=== PATIENT | female | born 1940 | race Caucasian/White ===

== ENCOUNTER 2019-08-07 16:25 | Emergency (ER) | payer MEDICARE, OTHER | END 2019-08-07 17:15 | disposition left against medical advice (07) | LOC: NAV ERS 16:25 | DX: N93.9 Abnormal uterine and vaginal bleeding, unspecified (principal); I10 Essential (primary) hypertension; K21.9 Gastro-esophageal reflux disease without esophagitis; E78.5 Hyperlipidemia, unspecified; J44.9 Chronic obstructive pulmonary disease, unspecified; Z87.891 Personal history of nicotine dependence; Z79.51 Long term (current) use of inhaled steroids; Z79.899 Other long term (current) drug therapy | CPT/HCPCS: 99284 ==

== ENCOUNTER 2020-04-24 22:33 | Emergency (ER) | payer MEDICARE ==
[~2020-04-24 22:33] MED LIST: Iopamidol 370 76% 100 ML VIAL ONE
[2020-04-24 22:58] LABS: #Basophils 0.1 thou/uL (0.0-0.2); #Eosinphils 0.1 thou/uL (0.0-0.7); #Lymphocytes 1.1 thou/uL (1.20-3.40); #Monocytes 0.4 thou/uL (0.11-0.59); #Neutrophils 2.7 thou/uL (1.40-6.50); %Basophils 1.4 % (0.0-1.0); %Eosinophils 2.7 % (0.0-10.0); %Lymphocytes 24.8 % (21.0-51.0); %Monocytes 9.3 % (0.0-10.0); %Neutrophils 61.8 % (42.0-75.0); Hemoglobin 10.7 g/dL (12.0-16.0); Mean Corpuscular HGB CONC 30.9 g/dL (32.0-36.0); Mean Corpuscular Hemoglobin 29.6 pg (27.0-31.0); Mean Platelet Volume 11.5 fL (7.4-10.4); Platelet Count 124 thou/uL (130-400); RBC Distribution Width 11.7 % (11.5-14.5); Red Blood Cell (RBC) Count 3.61 mill/uL (4.20-5.40); White Blood Cell (WBC) Count 4.4 thou/uL (4.8-10.8)
--- NOTE | 2020-04-24 23:07 | CT ---
CT HEAD WITHOUT IV CONTRAST COMPARISON: 04/10/2020 HISTORY: Dizziness. TECHNIQUE: Axial CT imaging at 5 mm intervals from vertex through skull base without contrast FINDINGS: There is decreased attenuation in the periventricular white matter which is nonspecific but likely re flective of chronic small vessel ischemic changes. Stable low density area seen in the posterior right basal ganglia compatible with a remote lacunar infarction. There is mild cerebral volume loss. The ventricular system is normal in size, shape, and position for the degree of sulcal atrophy. There is no evidence of an acute cortical infarction, hemorrhage, mass effect, or midline shift. Visualized paranasal sinuses are clear. Osseous structures appear intact. No significant interval change when compared to prior exam; however, the infarction in the region of the right caudate head and basal ganglia is much less perceptible on the current exam. IMPRESSION: 1. No acute intracranial abnormality demonstrated. 2. Chronic small vessel ischemic changes and cerebral volume loss. 3. Above findings discussed with Dr. Yoder in the emergency department on 04/24/2020 at 2302 hours.
[2020-04-24 23:08] LABS: INR-International Normal Ratio 0.9; PTT 26.1 sec (22.9-36.1); Prothrombin Time 12.2 sec (12.0-14.7)
[2020-04-24 23:16] LABS: ALT (SGPT) 17 U/L (8-55); AST (SGOT) 13 U/L (5-34); Albumin 3.7 g/dL (3.4-4.8); Alkaline Phosphatase 92 U/L (40-110); Anion Gap 16 mmol/L (10-20); BUN (Urea Nitrogen) 12 mg/dL (9.8-20.1); Bilirubin, Total 0.2 mg/dL (0.2-1.2); Calc. Creatinine Clearance 0 mL/min (70-130); Calcium 9.2 mg/dL (7.8-10.44); Carbon Dioxide 25 mmol/L (23-31); Chloride 102 mmol/L (98-107); Estimated GFR-MDRD 52; Glucose 106 mg/dL (83-110); Potassium 3.6 mmol/L (3.5-5.1); Protein, Total 6.7 g/dL (6.0-8.3); Sodium 139 mmol/L (136-145)
[2020-04-24 23:22] LABS: Bilirubin Negative (Negative); Blood, Urine Negative (Negative); Clarity Clear (Clear); Glucose, Urine (Dipstick) Negative (Negative); Ketone, Urine Negative (Negative); Leukocyte Negative (Negative); Nitrite Negative (Negative); Protein, Urine (Dipstick) Negative (Neg-Trace); Specific Gravity, Urine 1.015 (1.005-1.030); Urobilinogen 0.2 mg/dL (Less than 2); pH, Urine 7.5 (5.0-9.0)
[2020-04-24] MEDS ORDERED: Aspirin Chewable 81 MG TAB ONE (23:30)
--- NOTE | 2020-04-24 23:50 | RAD ---
EXAM: CHEST ONE VIEW HISTORY: Dizziness and hypertension COMPARISON: 04/10/2020 FINDINGS: Cardiac silhouette remains enlarged. Pulmonary vasculature appears mildly increased on the current st udy. There is suboptimal evaluation of the left lung base due to technique of the exam and the enlarged cardiac silhouette. No consolidation is seen in the visualized lungs. Vascular calcification s are again seen in thoracic aorta. There is osteopenia. No other interval change. IMPRESSION: 1. Cardiomegaly with pulmonary vascular congestion suggesting mild CHF. 2. Suboptimal evaluation left lung base. 3. Osteopenia.
[2020-04-25] MEDS ORDERED: Aspirin Chewable 81 MG TAB ONE (09:40)
[2020-04-25] MEDS ORDERED: Carvedilol 25 MG TAB ONE (09:40)
[2020-04-25] MEDS ORDERED: Clopidogrel Bisulfate 75 MG TAB ONE (09:40)
[2020-04-25] MEDS ORDERED: Aspirin Chewable 81 MG TAB PO SCH ×2 (10:00→15:45)
[2020-04-25] MEDS ORDERED: Carvedilol 25 MG TAB PO SCH ×2 (10:00→15:45)
[2020-04-25] MEDS ORDERED: hydrALAZINE 25 MG TAB PO SCH ×2 (10:00→15:45)
[2020-04-25] MEDS ORDERED: Aspirin 325 MG TAB PO SCH ×2 (10:00→15:45)
[2020-04-25] MEDS ORDERED: Clopidogrel Bisulfate 75 MG TAB PO SCH ×2 (10:00→15:45)
[2020-04-25] MEDS ORDERED: Ondansetron PF 4 MG/2 ML Vial ONE ×3 (10:46→17:40)
[2020-04-25] MEDS ORDERED: Ondansetron PF 4 MG/2 ML Vial IVP SCH (15:45)
[2020-04-25] MEDS ORDERED: Meclizine HCl 25 MG TAB ONE (17:21)
[2020-04-25 17:31] LABS: #Basophils 0.1 thou/uL (0.0-0.2); #Eosinphils 0.1 thou/uL (0.0-0.7); #Lymphocytes 0.9 thou/uL (1.20-3.40); #Monocytes 0.4 thou/uL (0.11-0.59); #Neutrophils 3.9 thou/uL (1.40-6.50); %Basophils 1.2 % (0.0-1.0); %Eosinophils 2.1 % (0.0-10.0); %Lymphocytes 17.1 % (21.0-51.0); %Monocytes 8.1 % (0.0-10.0); %Neutrophils 71.5 % (42.0-75.0); Hemoglobin 10.8 g/dL (12.0-16.0); Mean Corpuscular HGB CONC 31.1 g/dL (32.0-36.0); Mean Corpuscular Hemoglobin 29.9 pg (27.0-31.0); Mean Corpuscular Volume 96.2 fL (78.0-98.0); Mean Platelet Volume 10.2 fL (7.4-10.4); Platelet Count 158 thou/uL (130-400); RBC Distribution Width 11.9 % (11.5-14.5); White Blood Cell (WBC) Count 5.4 thou/uL (4.8-10.8)
[2020-04-25] MEDS ORDERED: Pantoprazole 40 MG VIAL ONE (17:37)
[2020-04-25 17:54] LABS: ALT (SGPT) 15 U/L (8-55); AST (SGOT) 14 U/L (5-34); Albumin 3.4 g/dL (3.4-4.8); Alkaline Phosphatase 73 U/L (40-110); Anion Gap 13 mmol/L (10-20); BUN (Urea Nitrogen) 13 mg/dL (9.8-20.1); Bilirubin, Total 0.3 mg/dL (0.2-1.2); Calc. Creatinine Clearance 0 mL/min (70-130); Calcium 8.3 mg/dL (7.8-10.44); Carbon Dioxide 24 mmol/L (23-31); Chloride 104 mmol/L (98-107); Estimated GFR-MDRD 68; Globulin 2.9 g/dL (2.4-3.5); Glucose 130 mg/dL (83-110); Potassium 3.4 mmol/L (3.5-5.1); Protein, Total 6.3 g/dL (6.0-8.3); Sodium 138 mmol/L (136-145)
[2020-04-25] MEDS ORDERED: Fentanyl 100 MCG/2 ML VIAL ONE (18:53)
[2020-04-25] MEDS ORDERED: Metoclopramide HCl 10 MG/2 ML VIAL ONE (18:53)
--- NOTE | 2020-04-25 20:58 | CT ---
CT ABDOMEN AND PELVIS WITH IV CONTRAST: 04/25/20 INDICATIONS: Dizziness and hypertension. FINDINGS: The lung bases appear clear. Liver, spleen and pancreas appear unremarkable. Stomach shows a small fixed sliding diaphragmatic her fernanda. Adrenal glands unremarkable. Images of the kidneys show a nonspecific area of low attenuation in volving the lower pole of the left kidney. This could represent focal pyelonephritis. An enhancing ma ss is not confirmed. Clinical correlation and follow-up is recommended. There are small renal cysts. A small cyst from the superior left kidney is seen which is mainly exoph ytic and measures approximately 1.0 cm. Tiny exophytic subcentimeter cyst from the lateral right kidn ey. The small bowel loops show nonspecific distention. No dilatation or evidence of obstruction. The appe ndix appears normal. Colon is not well distended. Nonspecific mural thickening in the right colon and transverse colon is noted. Images through the pelvis show a distended urinary bladder. Uterus and adnexa unremarkable. Aorta nor mal caliber with atherosclerotic calcification. Osseous structures unremarkable. IMPRESSION: 1. Abnormal low attenuation and decreased enhancement involving the lower pole of the left kidne y. Focal pyelonephritis should be considered and follow-up is recommended. 2. Distended urinary bladder. 3. Nonspecific mural thickening of the right and transverse colon. Colon is nondistended and the colon is suboptimally evaluated. There is nonspecific distention of the small bowel loops without ev idence of obstruction or dilatation. 4. Small fixed sliding diaphragmatic hernia. POS: AGW
== END 2020-04-25 19:36 | disposition short-term general hospital (02) ==
LOC: NAV ERS 22:33
DX: I10 Essential (primary) hypertension (principal); R42 Dizziness and giddiness; K21.9 Gastro-esophageal reflux disease without esophagitis; J44.9 Chronic obstructive pulmonary disease, unspecified; E78.5 Hyperlipidemia, unspecified; Z87.891 Personal history of nicotine dependence; Z79.899 Other long term (current) drug therapy; Z79.82 Long term (current) use of aspirin; Z79.1 Long term (current) use of non-steroidal anti-inflammatories (NSAID)
CPT/HCPCS: 70450; 71045; 74177; 80053; 81003; 84484; 85025; 85610; 85730; 93005; 94760; 96361; 96374; 96375; 96376; C9113; J2405; J2765; J3010; Q9967

== ENCOUNTER 2020-05-23 08:04 | Emergency (ER) | payer MEDICARE ==
[2020-05-23] MEDS ORDERED: Adacel (T-DAP) 0.5 ML SYRINGE ONE (08:22)
[2020-05-23] MEDS ORDERED: Acetaminophen 500 MG TAB ONE (08:28)
[2020-05-23] MEDS ORDERED: Lidocaine 1% w/Epinephrine 1:100K 30 ML VIAL ONE (08:30)
--- NOTE | 2020-05-23 08:42 | CT ---
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 No acute hemorrhage. Extensive microangiopathic changes. Right forehead soft tissue contusion and laceration. Underlying calvarium is intact. Impression: No acute posttraumatic intracranial sequela. Right forehead soft tissue contusion and lac eration.
== END 2020-05-23 09:20 | disposition home or self-care (01) ==
LOC: NAV ERS 08:04
DX: S01.111A Laceration without foreign body of right eyelid and periocular area, initial encounter (principal); S80.811A Abrasion, right lower leg, initial encounter; K21.9 Gastro-esophageal reflux disease without esophagitis; J44.9 Chronic obstructive pulmonary disease, unspecified; E78.5 Hyperlipidemia, unspecified; I10 Essential (primary) hypertension; Z87.891 Personal history of nicotine dependence; Z79.899 Other long term (current) drug therapy; Z79.82 Long term (current) use of aspirin; Z79.891 Long term (current) use of opiate analgesic; W18.30XA Fall on same level, unspecified, initial encounter
CPT/HCPCS: 12013; 70450; 90471; 90715; J2001

== ENCOUNTER 2020-08-15 16:09 | Emergency (ER) | payer MEDICARE ==
[2020-08-15 17:14] LABS: Bilirubin Moderate (Negative); Blood, Urine Large (Negative); Glucose, Urine (Dipstick) Negative (Negative); Ketone, Urine > or equal to 80 mg/dL (Negative); Leukocyte Negative (Negative); Nitrite Negative (Negative); Protein, Urine (Dipstick) > or equal to 300 mg/dL (Neg-Trace); Specific Gravity, Urine 1.025 (1.005-1.030)
[2020-08-15 17:15] LABS: Clarity Cloudy (Clear); RBC/HPF Greater than 50 HPF (0-3); WBC/HPF 0-3 HPF (0-3)
[2020-08-15 17:16] LABS: Bacteria/HPF None Seen HPF (None Seen); Squamous Epithelial 0-3 HPF (0-3)
== END 2020-08-15 17:05 | disposition home or self-care (01) ==
LOC: NAV ERS 16:09
DX: R31.9 Hematuria, unspecified (principal); Z46.6 Encounter for fitting and adjustment of urinary device; K21.9 Gastro-esophageal reflux disease without esophagitis; J44.9 Chronic obstructive pulmonary disease, unspecified; E78.5 Hyperlipidemia, unspecified; I10 Essential (primary) hypertension; Z87.891 Personal history of nicotine dependence; Z79.899 Other long term (current) drug therapy
CPT/HCPCS: 81003; 81015; 87086; 99283

== ENCOUNTER 2020-09-04 12:48 | Emergency (ER) | payer MEDICARE ==
[2020-09-04] MEDS ORDERED: Morphine 4 MG/ML VIAL ONE (13:17)
[2020-09-04 13:32] LABS: #Eosinphils 0.1 thou/uL (0.0-0.7); #Lymphocytes 0.7 thou/uL (1.20-3.40); #Monocytes 0.4 thou/uL (0.11-0.59); #Neutrophils 2.8 thou/uL (1.40-6.50); %Basophils 0.9 % (0.0-1.0); %Eosinophils 2.7 % (0.0-10.0); %Lymphocytes 17.1 % (21.0-51.0); %Monocytes 10.1 % (0.0-10.0); %Neutrophils 69.2 % (42.0-75.0); Hemoglobin 12.1 g/dL (12.0-16.0); Mean Corpuscular HGB CONC 33.3 g/dL (32.0-36.0); Mean Corpuscular Volume 93.1 fL (78.0-98.0); Mean Platelet Volume 10.6 fL (7.4-10.4); Platelet Count 109 thou/uL (130-400); RBC Distribution Width 16.2 % (11.5-14.5); Red Blood Cell (RBC) Count 3.89 mill/uL (4.20-5.40)
[2020-09-04 13:46] LABS: ALT (SGPT) 16 U/L (8-55); AST (SGOT) 20 U/L (5-34); Alkaline Phosphatase 135 U/L (40-110); Anion Gap 15 mmol/L (10-20); BUN (Urea Nitrogen) 9 mg/dL (9.8-20.1); Bilirubin, Total 0.6 mg/dL (0.2-1.2); Calc. Creatinine Clearance 0 mL/min (70-130); Calcium 9.3 mg/dL (7.8-10.44); Carbon Dioxide 29 mmol/L (23-31); Chloride 98 mmol/L (98-107); Globulin 3.4 g/dL (2.4-3.5); Glucose 144 mg/dL (83-110); Protein, Total 7.4 g/dL (6.0-8.3); Sodium 139 mmol/L (136-145)
--- NOTE | 2020-09-04 13:50 | RAD ---
Exam:2 views left hip HISTORY: Trauma. Pain. COMPARISON: None FINDINGS: Intertrochanteric fracture with mild distraction. Limited evaluation sacrum and bony pelvis . There is diffuse bony mineralization. IMPRESSION: Intertrochanteric fracture.
--- NOTE | 2020-09-04 13:52 | RAD ---
Exam: Chest one view HISTORY:Preoperative exam. Fall. Pain. Comparison: 04/24/2020 FINDINGS: Cardiac silhouette:Enlarged. Aorta: Atherosclerotic Pulmonary vessels: Normal Costophrenic angles: Clear LUNGS: Hyperinflation. Chronic changes. No consolidation or mass. Pneumothorax: None Osseous abnormalities: None IMPRESSION: 1. Atherosclerosis 2. Cardiomegaly. No evidence of congestive heart failure..
[2020-09-04 13:53] LABS: Potassium 2.8 mmol/L (3.5-5.1)
[2020-09-04] MEDS ORDERED: hydrALAZINE 10 MG TAB ONE (14:15)
[2020-09-04] MEDS ORDERED: Potassium Chloride 20 MEQ TAB ONE (14:29)
[2020-09-04] MEDS ORDERED: Morphine 2 MG/ML SYRINGE ONE ×2 (15:06→17:53)
== END 2020-09-04 18:39 | disposition short-term general hospital (02) ==
LOC: NAV ERS 12:48
DX: S72.142A Displaced intertrochanteric fracture of left femur, initial encounter for closed fracture (principal); J44.9 Chronic obstructive pulmonary disease, unspecified; I10 Essential (primary) hypertension; E87.6 Hypokalemia; K21.9 Gastro-esophageal reflux disease without esophagitis; E78.5 Hyperlipidemia, unspecified; Z79.899 Other long term (current) drug therapy; X58.XXXA Exposure to other specified factors, initial encounter
CPT/HCPCS: 71045; 80053; 85025; 96374; 96376; J2270